=== PATIENT | male | born 1995 | race Caucasian/White ===

== ENCOUNTER 2020-06-02 04:22 | Emergency (ER) | payer SELFPAY ==
[~2020-06-02] VITALS: Ht 190.5 cm; Wt 71.2 kg
[2020-06-02 04:30] VITALS: BP 114/60
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
--- NOTE | 2020-06-02 05:00 | NUR ---
SEEN AND EXAMINED BY GRICEL AND MIREILLE TO BOOK
[2020-06-02 05:14] VITALS: BP 114/60
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
== END 2020-06-02 05:14 ==
LOC: MED 04:22
DX: Z04.1 Encounter for examination and observation following transport accident (principal); Z02.89 Encounter for other administrative examinations; V47.9XXA Unspecified car occupant injured in collision with fixed or stationary object in traffic accident, initial encounter; Y93.89 Activity, other specified; Y92.89 Other specified places as the place of occurrence of the external cause; Y99.8 Other external cause status
CPT/HCPCS: 99283